=== PATIENT | female | born 1940 | race Caucasian/White ===

== ENCOUNTER 2020-10-02 08:08 | Observation (INO) | payer MEDICARE, SELFPAY ==
[2020-10-02] VITALS (12 sets, daily range): BP systolic 152–211; BP diastolic 54–91; PULSE 56–88; RESP 12–18; TEMP 36.2–36.6; O2SAT 94–99; BMI 29.8
--- NOTE | ~2020-10-02 | MR_ITS ---
EXAMINATION: MR brain/brain stem wo/w con EXAM DATE: 10/03/2020 10:28 INDICATION: hx stroke, new gait disturbance. TECHNIQUE: Magnetic resonance imaging (MRI) of the brain/brain stem obtained without contrast. Sagit brady T1, axial diffusion, gradient echo (T2*), T1, T2, FLAIR sequences obtained. Patient was then inj ected with 14 cc intravenous Multihance contrast. Axial and coronal postcontrast T1 weighted sequence s obtained. Correlation is made to head CT from yesterday. FINDINGS: There are no areas of restricted diffusion to suggest acute infarction. There is no acute hemorrhage seen on the T2*, a hemosiderin sensitive sequence. No intraparenchymal brain mass lesion. There is an old left basal ganglia lacunar infarction. There is mild periventricular and subcortic al T2/FLAIR signal hyperintensity, nonspecific but probably related to small vessel ischemic disease (microangiopathy). There is moderate prominence of the sulci and ventricles related to cerebral atr ophy. There are no extra-axial collections. Flow voids are seen in the cerebral arteries on the T2 -weighted sequences consistent with their expected patency. The orbits are unremarkable. Soft tissu e is unremarkable. There are no areas of abnormal enhancement on the postcontrast images. IMPRESSION: 1. No acute intracranial findings. 2. Chronic age related findings. 3. Old left basal ganglia lacunar infarction. Reviewed, dictated and finalized at location B. CLEANER
--- NOTE | ~2020-10-02 | US_ITS ---
EXAMINATION: US carotid duplex BI DATE: 10/03/2020 10:47 INDICATION: Gait disturbance. TECHNIQUE: Grayscale, color Doppler, and pulsed Doppler images of the cervical carotid arteries were obtained. The degree of vessel stenosis is placed in one of the following categories: normal, <50%, 5 0-69%, >=70% but less than near-occlusion, near-occlusion, or total occlusion. Note that percent sten osis relative to normal distal artery lumen diameter is indirectly measured from velocity measurement s as described by Gurjit, et al. Radiology 2003; 229:340-346. Notes: Normal: Peak systolic velocity <125 centimeters/sec and no plaque <50%. Peak systolic velocity <125 ( EDV <40; ICA/CCA PSV ratio <2.0; used these factors only a tandem lesions or low cardiac output or co ntralateral disease) 50-69 %: PSV 125-230 (EDV 40-100; ratio 2-4) >= 70% but less than near occlusion: PSV greater than 230 (EDV > 100; ratio> 4.0) Near Occlusion: PSV that is variable; markedly narrowed lumen Occlusion: Absent flow on color/spectral Doppler and no lumen on nick scale. COMPARISON: None. FINDINGS: RIGHT: The right common carotid artery (CCA) peak systolic velocity (PSV) is 77 cm/s. The right internal car otid artery (ICA) PSV is 69 cm/s. The right ICA end-diastolic velocity (EDV) is 14 cm/s. The right IC A/CCA PSV ratio is 0.9. The external carotid artery (ECA) PSV is 233 cm/s. There is antegrade flow in the right vertebral artery. LEFT: The left CCA PSV is 73 cm/s. The left ICA PSV is 98 cm/s. The left ICA EDV is 29 cm/s. The left ICA/C CA PSV ratio is 1.3. The ECA PSV is 275 cm/s. There is antegrade flow in the left vertebral artery. IMPRESSION: 1. Less than 50% stenosis in the right internal carotid artery by sonographic criteria. 2. Less than 50% stenosis in the left internal carotid artery by sonographic criteria. Reviewed, dictated and finalized at location A. ICAL SUPPORT NURSE IMPRESSION: 1. Less than 50% stenosis in the right internal carotid artery by sonographic romeo thomas. 2. Less than 50% stenosis in the left internal carotid artery by sonographic hanane ha.
--- NOTE | ~2020-10-02 | XR_ITS ---
EXAMINATION: XR chest 1V portable EXAM DATE: 10/02/2020 09:32 INDICATION: Dizziness and elevated blood pressure. TECHNIQUE: Portable AP frontal chest x-ray was obtained. There is no prior study for comparison. FINDINGS: Small amount of ill-defined right upper lobe airspace disease laterally. Could be developin g acute infectious process, please clinically correlate and consider a follow-up exam. This finding h as been indicated, marked on the examination for review, clinical correlation. The lungs are otherwise clear. There are no pleural effusions. The cardiomediastinal silhouette is within normal limits. There is no pneumothorax suspected. There is aortic arteriosclerosis. There a re mild bony degenerative changes. IMPRESSION: Subsegmental ill-defined right upper lobe airspace disease possible acute developing infe ction. Clinical correlation, recommend follow-up. Reviewed, dictated and finalized at location A. COMMUNICATION INSTRUCTOR IMPRESSION: Subsegmental ill-defined right upper lobe airspace disease possible acute developing infection. Clinical correlation, recommend follow-up.
--- NOTE | ~2020-10-02 | CT_ITS ---
EXAMINATION: CT brain wo con EXAM DATE: 10/02/2020 10:02 INDICATION: Dizziness. Vision problems. TECHNIQUE: Spiral CT of the head was performed without contrast. Axial, coronal and sagittal images were reviewed. The dose-length product (DLP) for this examination was 605.33 mGy-cm. The exposure w as tailored according to patient size, and iterative reconstruction (ASIR) was used as additional dos e reduction technique. There is no prior study for comparison. FINDINGS: There is no acute intraparenchymal hemorrhage. No evidence of intraparenchymal brain mass lesion. No evidence of acute infarction. Please note that initial head CT has limited sensitivity f or small or acute infarctions. There is a left basal ganglia old lacunar infarction. There is mild periventricular and subcortical hypodensity, nonspecific but probably related to small vessel ischemi c disease. There is moderate prominence of the sulci and ventricles related to cerebral atrophy. There is intracranial carotid arteriosclerosis. There are no extra-axial collections. There is no m ass effect or midline shift. Patient has had bilateral ocular lens surgery. Soft tissue is unremark able. The visualized sinuses and mastoid air cells are well aerated. IMPRESSION: 1. No acute intracranial findings. 2. Chronic age related findings. 3. Old left basal ganglia lacunar infarction. Reviewed, dictated and finalized at location A. THER
--- NOTE | 2020-10-02 08:28 | ECG_ITS ---
Measurements Intervals [place] Rate: 70 P: 69 CT: 173 QRS: 53 QRSD: 100 T: 37 QT: 394 QTc: 426 Interpretive Statements SINUS RHYTHM WITH MARKED SINUS ARRHYTHMIA BASELINE ARTIFACT- V4, V6 BORDERLINE ECG Electronically Signed On 10-02-2020 8:36:20 ONLINE MARKETING COORDINATOR by Tien Zapata D.O.
[2020-10-02 08:37] LABS: Glucose Point of Care 122 (65-105)
[2020-10-02 08:41] LABS: Basophils Absolute Auto 0.1 K/mm3 (0.0-0.1); Basophils Percent Auto 0.6 % (0.2-1.2); Eosinophils Absolute Auto 0.1 K/mm3 (0-0.3); Eosinophils Percent Auto 1.3 % (0-4.4); Hematocrit 47.3 % (37.0-47.0); Hemoglobin 15.7 g/dL (12.0-15.0); Immature Granulocyte Absolute 0.02 K/mm3 (0.00-0.031); Immature Granulocyte Percent A 0.2 % (0-0.5); Lymphocytes Absolute Auto 4.68 K/mm3 (0.9-3.2); Lymphocytes Percent Auto 56.4 % (18.3-44.2); Mean Corpuscular HGB Conc 33.2 g/dl (32-36); Mean Corpuscular Hemoglobin 30.6 pg (26-34); Mean Corpuscular Volume 92.2 fl (80-100); Mean Platelet Volume 9.6 fl (7.4-10.4); Monocytes Absolute Auto 0.5 K/mm3 (0.1-0.6); Monocytes Percent Auto 5.4 % (2.6-8.5); Neutrophils Percent Auto 36.1 % (45.5-73.1); Platelet Count Result 230 k/mm3 (150-375); Red Blood Count 5.13 M/mm3 (4.2-5.4); Red Cell Distribution Width 12.3 % (11.5-14.5); White Blood Count 8.3 K/mm3 (4.5-10.0)
[2020-10-02 09:02] LABS: Alanine Aminotransferase 24 U/L (4-35); Albumin Level 4.6 g/dL (3.5-5.1); Alkaline Phosphatase 61 U/L (38-126); Anion Gap 9 mmol/L (8-16); Aspartate Amino Transferase 31 U/L (14-36); Bilirubin,Total 0.8 mg/dL (0.2-1.3); Blood Urea Nitrogen 14 mg/dL (7-17); Calcium 10.4 mg/dL (8.4-10.2); Carbon Dioxide 28 mmol/L (22-30); Chloride 102 mmol/L (98-107); Estimated CRCL calculation 35 ml/min; Estimated Glomerular Filt Rate 53; Glucose 130 mg/dL (65-105); Potassium 4.1 mmol/L (3.4-5.0); Sodium 139 mmol/L (137-145)
--- NOTE | 2020-10-02 09:26 | ED.DIZZY ---
HPI - Dizziness General Chief Complaint: Dizziness Stated Complaint: feeling shakey Time Seen by Provider: 10/02/20 09:11 Source: patient and family History of Present Illness HPI Narrative: 79 years old white female woke up this morning shaky, wobbly and feels like going to faint and fall over, unable to walk in a straight line. Patient denies any fever, chills, nausea, vomiting, headache, focal weakness. History of CVA, with weakness of the right lower extremity. Patient on Coumadin. Patient denies any recent medications. Patient is DNR Related Data Allergies Allergy/AdvReac Type Severity Reaction Status Date / Time fluoxetine Allergy Unknown Hives / Verified 10/02/20 08:29 Red Face Sulfa (Sulfonamide Allergy Unknown Hives / Verified 10/02/20 08:29 Antibiotics) Red Face Review of Systems Review of Systems: Narrative: CONSTITUTIONAL: Denies fever, chills, or sweats. EYES: Denies visual changes, redness, or discharge. ENT: Denies rhinorrhea, congestion, sore throat, or otalgia. CARDIOVASCULAR: Denies chest pain, palpitations, or edema. RESPIRATORY: Denies cough or dyspnea. GASTROINTESTINAL: Denies abdominal pain, nausea, vomiting, or diarrhea. GENITOURINARY: Denies dysuria or hematuria. SKIN: Denies rash or itching. MUSCULOSKELETAL: Denies back pain, joint pain, or myalgia. NEUROLOGIC: Denies headache, numbness, or weakness. PSYCHIATRIC: Denies anxiety or depression. Exam Narrative: Exam Narrative: General appearance: Well-developed, well-nourished, at the bedside Skin: Normal color Head: Normocephalic, nontraumatic Eyes: Clear conjunctiva ENT: Oropharynx normal, ears normal, nose normal Neck: Supple, nontender Chest and respiratory: Airway patent, no respiratory distress, no accessory muscle use Heart: Regular rate/rhythm Abdomen: Soft, nontender, no organomegaly, quiet bowel sounds Vascular: Normal peripheral pulses, normal capillary refill. 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, no gross motor deficit, patient was able to get out of bed, standing next to the bed and feeling wobbly, was not able to walk forward because of the wobbly feeling Course Course Emergency Course: Stable Consultations Consultation #1: DR ESPINOZA Date: 10/02/20 Time: 10:59 Consultation #2: DR ZEPEDA Vital Signs Vital signs: Vital Signs Temperature 36.4 C 10/02/20 08:18 Pulse Rate 88 10/02/20 08:18 Respiratory Rate 14 10/02/20 08:18 Blood Pressure 210/82 H 10/02/20 08:18 Pulse Oximetry 99 10/02/20 08:18 Temperature 36.4 C 10/02/20 08:18 Pulse Rate 66 10/02/20 09:27 Respiratory Rate 16 10/02/20 09:27 Blood Pressure 211/91 H 10/02/20 09:27 Pulse Oximetry 97 10/02/20 09:27 MDM - Dizziness MDM Narrative Medical decision making narrative: Patient presents with wobbly and lightheadedness. Labs, orthostatic blood pressure, CT head, UA and chest x-ray ordered. Further plan to follow Differential Diagnosis Differential diagnosis: Likely adverse reaction to drug, orthostatic hypotension, vertebral basilar insufficiency, cerebrovascular accident and transient cerebral ischemia Lab Data Result diagrams: 10/02/20 08:31 10/02/20 08:31 Labs: Lab Results 10/02/20 10/02/20 10/02/20 Range/Units 08:31 08:31 08:31 WBC 8.3 (4.5-10.0) K/mm3 RBC 5.13 (4.2-5.4) M/mm3 Hgb 15.7 H (12.0-15.0) g/dL Hct 47.3 H (37.0-47.0) % MCV 92.2 (80-100) fl MCH 30.6 (26-34) pg MCHC 33.2 (32-36) g/dl RDW 12.3 (11.5-14.5) % Plt Count 230 (150-375) k/mm3 MPV 9.6 (7.4-10.4) fl Immature Gran
--- NOTE | 2020-10-02 09:39 | PC.NURSE ---
called Anita thorne, added on Trop I and PT INR
[2020-10-02 09:55] LABS: INR 1.8; Prothrombin Time 21.9 Seconds (11.1-14.7)
[2020-10-02 09:56] LABS: Add Urine Microscopic? YES; Appearance Urine Cloudy (Clear); Bilirubin Urine Negative (Negative); Blood Urine Negative (Negative); Color Urine Yellow (Yellow); Glucose Urine UA Negative (Negative); Hyaline Casts Urine 30-49 /lpf; Ketones Urine Negative (Negative); Leukocyte Esterase Ur 2+ LEU/UL (Negative); Mucus Urine Few /lpf; Nitrate Urine Negative (Negative); Protein Urine 2+ mg/dL (Negative); Specific Grav Ur 1.019 (1.001-1.035); Squamous Epithelial Cell Urine Many /hpf (Few); Transitional Epi Cells Urine Rare /hpf (None Seen); Urobilinogen Urine Negative mg/dL (<2.0); WBC Urine 21-30 /hpf
[2020-10-02 10:01] LABS: Troponin I < 0.012 ng/mL (0.000-0.034)
--- NOTE | 2020-10-02 13:37 | ADMGEN ---
This patient, Chelsie Stokes, was admitted to 3 [facility] Surg Room 315-01. Patient/family oriented to hospital policies and general routines including ID bracelet, bed and alarms, visiting hours, pain management, procedures, bathroom and other care routines, personal items, smoking policy, room service/diet, and visiting hours. Information on how to activate the Rapid Response Team has been discussed. Patient/Family are encouraged to report perceived risks to care and to ask questions if they do not understand what they are told or what they should do.
--- NOTE | 2020-10-02 14:43 | PM.IMHP ---
H&P: HPI History of Present Illness Date/Time: 10/02/20 14:43 Chief complaint: Dizzineaa/possible pneumonia/UTI Narrative: Chelsie Stokes is a 79 year old female with a history of stroke in 1992. She was in her usual state of health with only mild stiffness of the right leg as a residual liver stroke. However when she got out of bed at 7:20 a.m. this morning she noticed she was more off balance than usual. Because of her history of prior stroke her brought her the emergency department. She was fine while lying down. She did not attempt to get up until this afternoon when re-evaluated. At that point she had none of the symptoms that were present this morning. She denied headache, blurred vision, double vision, dysphagia, dysarthria, aphasia, weakness, numbness, incoordination, bowel or bladder changes, dysuria, hematuria, frequency, constipation, diarrhea, hematochezia, chest pain, palpitations, syncope or presyncope, fevers chills or sweats, cough, congestion, or sore throat. She has had increased sneezing over the past couple of weeks but has a history of seasonal allergies in the fall. She has not traveled recently nor has she had any known exposure to ill individuals. However 2 weeks ago she did attend an oxygen at which several people did not wear mask. She avoided very crowded areas and did wear a mask herself. With her stroke in 1992 she had some weakness on the right arm and leg and a severe headache. She was evaluated at [facility]. Because no discernible etiology was present they recommended long-term warfarin. She has tolerated that well with no abnormal bleeding or bruising over the years. Her INR levels have been relatively stable. She has never smoked or abused recreational drugs. About 3 years ago she started having 1 shot of whiskey at night. Review of Systems Review of Systems: All systems reviewed & are unremarkable except as noted in HPI and below PMFSH Past Medical History Medical History (Updated 10/02/20 @ 15:02 by Larry Carter MD) H/O: stroke Hypertension, essential Surgical History Surgical History (Updated 10/02/20 @ 14:50 by Larry Carter MD) H/O cataract removal with insertion of prosthetic lens Family History Family History Father Acute myocardial infarction Social History Social History Smoking status: Never smoker Second hand tobacco smoke exposure: No Alcohol intake: current Substance use: never Gender identity (if verbalized by the patient): Female Sexual Orientation (if Verbalized by the Patient): Straight or Heterosexual Spiritual care concerns: No Meds Home Medications and Allergies Home Medications Medication Instructions Recorded Confirmed Type atenolol 50 mg PO DAILY 10/02/20 10/02/20 History lisinopril 40 mg PO DAILY 10/02/20 10/02/20 History simvastatin 40 mg PO DAILY 10/02/20 10/02/20 History warfarin 1 mg PO DAILY 10/02/20 10/02/20 History warfarin 3 mg PO DAILY 10/02/20 10/02/20 History Allergies Allergy/AdvReac Type Severity Reaction Status Date / Time fluoxetine Allergy Unknown Hives / Verified 10/02/20 13:42 Red Face Sulfa (Sulfonamide Allergy Unknown Hives / Verified 10/02/20 13:42 Antibiotics) Red Face Vital Signs Vital Signs - 24 hr 10/02/20 08:18 10/02/20 08:29 10/02/20 09:20 Temperature 97.6 F Pulse Rate 88 73 75 Respiratory Rate 14 13 Blood Pressure 210/82 H 196/81 H 175/80 H Pulse Oximetry 99 98 10/02/20 09:27 10/02/20 11:08 10/02/20 11:12 Temperature Pulse Rate 67 63 62 Respiratory Rate 16 13 13 Blood Pressure 211/91 H 184/75 H 184/75 H Pulse Oximetry 97 97 96 10/02/20 11:50 10/02/20 12:43 10/02/20 14:09 Temperature Pulse Rate 62 58 L Respiratory Rate 12 13 Blood Pressure 177/61 H 172/71 H Pulse Oximetry 97 96 94 Exam Narra
[2020-10-02] MEDS: SIMVASTATIN 20 MG TABLET 40 MG PO (20:30)
[2020-10-02 22:24] LABS: SARS-CoV-2 RNA PCR Negative
[2020-10-02] MEDS: WARFARIN (*PBKC) 1 MG TABLET PO (23:04)
[2020-10-03] VITALS (8 sets, daily range): BP systolic 127–179; BP diastolic 55–62; PULSE 56–67; RESP 18–20; TEMP 36.2–36.4; O2SAT 97–98
--- NOTE | 2020-10-03 | ECHO_ITS ---
Patient Info Name: Chelsie Small Chartrand Age: 79 years : 1940 Gender: Female Ht: 61 in Wt: 158 lbs BSA: 1.78 m2 HR: 79 bpm BP: 168 / 61 mmHg Heart Rhythm: Sinus Rhythm Technical Quality: Good Exam Date: 10/03/2020 2:18 PM Exam Location: [facility] Patient Status: Outpatient Admit Date: 10/02/2020 Staff Ordering Physician: Larry Carter MD Technical Sales Manager: Gene Walker, LENA, RT Attending Provider: Carlyle Umana MD Referring Physician: Emma SMITH; Exam Type: CA echo dop color flow w con Study Info Indications G45.8 - Other transient cerebral ischemic attacks and related syndromes Complete two-dimensional, color flow and Doppler transthoracic echocardiogram is performed. Strain analysis performed. Summary 1. Complete two-dimensional, color flow and Doppler transthoracic echocardiogram is performed. 2. Strain analysis performed. 3. Left ventricular chamber dimension is normal. 4. Left ventricular systolic function is normal, estimated at 60-65%. 5. There is mildly increased left ventricular wall thickness. 6. The left ventricular diastolic function is grade I diastolic dysfunction. 7. Global longitudinal strain is normal at -21 %. 8. Left atrial chamber dimension is mildly enlarged. 9. There is mild aortic valve calcification. 10. The mitral valve has thickened leaflets, calcified leaflets and calcified annulus. 11. There is mild mitral valve regurgitation. 12. There is mild mitral valve calcification. 13. There is mild tricuspid valve regurgitation. 14. On the anterior mitral leaflet, there is a significant calcification which may be an old healed vegetation. Left Ventricle Left ventricular chamber dimension is normal. Left ventricular systolic function is normal, estimated at 60-65%. There is mildly increased left ventricular wall thickness. The left ventricular diastolic function is grade I diastolic dysfunction. Global longitudinal strain is normal at -21 %. Right Ventricle Right ventricular chamber dimension is normal. Right ventricular systolic function is normal. Left Atria Left atrial chamber dimension is mildly enlarged. Right Atria Right atrial chamber dimension is normal. Atrial Septum Intact interatrial septum visualized by color flow imaging. Aortic Valve The aortic valve is trileaflet. There is mild aortic valve sclerosis. There is no aortic valve stenosis. There is trace aortic valve regurgitation. There is mild aortic valve calcification. Pulmonic Valve The pulmonic valve is normal. There is no pulmonic valve stenosis. There is trace pulmonic regurgitation. Mitral Valve The mitral valve has thickened leaflets, calcified leaflets and calcified annulus. There is no mitral valve stenosis. There is mild mitral valve regurgitation. There is mild mitral valve calcification. On the anterior mitral leaflet, there is a significant calcification which may be an old healed vegetation. Tricuspid Valve The tricuspid valve leaflets are normal. There is no significant tricuspid valve stenosis. There is mild tricuspid valve regurgitation. No pulmonary hypertension, estimated pulmonary arterial systolic pressure is 31 mmHg. Pericardium/Pleural The pericardium appears normal. There is no pericardial effusion. Inferior Vena Cava Normal inferior vena cava with <50% collapse upon inspiration consistent with normal right atrial pressure, 5 mmHg. Aorta The aortic root size at the si
[2020-10-03 06:15] LABS: Basophils Percent Auto 0.5 % (0.2-1.2); Eosinophils Absolute Auto 0.1 K/mm3 (0-0.3); Eosinophils Percent Auto 1.3 % (0-4.4); Hematocrit 43.1 % (37.0-47.0); Hemoglobin 14.5 g/dL (12.0-15.0); Immature Granulocyte Absolute 0.02 K/mm3 (0.00-0.031); Immature Granulocyte Percent A 0.2 % (0-0.5); Lymphocytes Percent Auto 36.7 % (18.3-44.2); Mean Corpuscular HGB Conc 33.6 g/dl (32-36); Mean Corpuscular Volume 89.2 fl (80-100); Mean Platelet Volume 9.8 fl (7.4-10.4); Monocytes Absolute Auto 0.6 K/mm3 (0.1-0.6); Monocytes Percent Auto 7.6 % (2.6-8.5); Neutrophils Absolute Auto 4.4 K/mm3 (1.3-6.7); Neutrophils Percent Auto 53.7 % (45.5-73.1); Platelet Count Result 208 k/mm3 (150-375); Red Blood Count 4.83 M/mm3 (4.2-5.4); Red Cell Distribution Width 12.1 % (11.5-14.5); White Blood Count 8.2 K/mm3 (4.5-10.0)
[2020-10-03 06:28] LABS: Anion Gap 8 mmol/L (8-16); Blood Urea Nitrogen 13 mg/dL (7-17); Calcium 9.8 mg/dL (8.4-10.2); Carbon Dioxide 26 mmol/L (22-30); Chloride 105 mmol/L (98-107); Estimated CRCL calculation 43 ml/min; Estimated Glomerular Filt Rate > 60; Glucose 114 mg/dL (65-105); Potassium 4.1 mmol/L (3.4-5.0); Sodium 139 mmol/L (137-145)
[2020-10-03 06:32] LABS: INR 1.9; Prothrombin Time 22.1 Seconds (11.1-14.7)
[2020-10-03] MEDS: lisinopriL 20 MG TABLET 40 MG PO (08:00)
[2020-10-03] MEDS: atenoloL 50 MG TABLET PO (08:05)
--- NOTE | 2020-10-03 10:43 | WPDNEURCNPN ---
Assessment and Plan Assessment and plan (1) Gait disturbance: Code(s): R26.9 - Unspecified abnormalities of gait and mobility Status: Acute Additional Plan a CT scan revealed no acute intracranial bleed chronic age-related finding and old left basal gangliar lacunar infarct carotid study an MRI pending routine labs with no leukocytosis hemoglobin 15.7 UA abnormal and the culture is pending medication will continued as such Consult date: 10/04/20 Time Seen: 10:43 HPI: Chlesie Stokes is a 79 year old female has been admitted to [facility] with ongoing history of having any stroke back in 1992 but recently more difficulties in maintaining the balance she was reportedly find lying down on the floor he did not get up until the afternoon she gave no history of associated generalized symptomatology but she did have a history of increases in sneezing she has had a stroke back in 1992 which left her with right-sided weakness he was initially evaluated at the [facility] and was placed on long-term anticoagulation therapy past history of consistent with the 1. Hypertension 2. Stroke 3. Cataract extraction 4. No small and not drinking Review of Systems Review of Systems: All systems reviewed & are unremarkable except as noted in HPI and below PMFSH Past Medical History Medical History (Updated 10/02/20 @ 15:02 by Larry Carter MD) H/O: stroke Hypertension, essential Surgical History Surgical History (Updated 10/02/20 @ 14:50 by Larry Carter MD) H/O cataract removal with insertion of prosthetic lens Family History Family History Father Acute myocardial infarction Social History Social History Smoking status: Never smoker Second hand tobacco smoke exposure: No Alcohol intake: current Substance use: never Gender identity (if verbalized by the patient): Female Sexual Orientation (if Verbalized by the Patient): Straight or Heterosexual Spiritual care concerns: No Meds Home Medications and Allergies Home Medications Medication Instructions Recorded Confirmed Type atenolol 50 mg PO DAILY 10/02/20 10/02/20 History lisinopril 40 mg PO DAILY 10/02/20 10/02/20 History simvastatin 40 mg PO DAILY 10/02/20 10/02/20 History warfarin 1 mg PO DAILY 10/02/20 10/02/20 History warfarin 3 mg PO DAILY 10/02/20 10/02/20 History Allergies Allergy/AdvReac Type Severity Reaction Status Date / Time fluoxetine Allergy Unknown Hives / Verified 10/02/20 13:42 Red Face Sulfa (Sulfonamide Allergy Unknown Hives / Verified 10/02/20 13:42 Antibiotics) Red Face Vital Signs Vital Signs - 24 hr 10/02/20 11:08 10/02/20 11:12 10/02/20 11:50 Temperature Pulse Rate 63 62 62 Respiratory Rate 13 13 12 Blood Pressure 184/75 H 184/75 H 177/61 H Pulse Oximetry 97 96 97 10/02/20 12:43 10/02/20 14:09 10/02/20 16:00 Temperature 36.6 C Pulse Rate 58 L 56 L Respiratory Rate 13 16 Blood Pressure 172/71 H 152/54 H Pulse Oximetry 96 94 98 10/02/20 20:00 10/02/20 20:25 10/03/20 00:00 Temperature 36.2 C L Pulse Rate 59 L 56 L 57 L Respiratory Rate 18 Blood Pressure 168/68 H Pulse Oximetry 95 10/03/20 04:00 10/03/20 06:00 Temperature 36.3 C L Pulse Rate 56 L 62 Respiratory Rate 18 Blood Pressure 168/61 H Pulse Oximetry 97 Exam Narrative: Exam Narrative: examination reveals her to be awake alert ear nose throat examination normal neck supple with no cervical bruit no thyromegaly no lymphadenopathy heart regular lungs clear abdomen is soft neurological is she has pupils round regular feels the vision full extraocular muscle full face symmetrical tongue midline motor examination revealed her to have stiffness in the right lower extremity with upgoing questionable plantar response Results Labs CBC & Chem 7: 10/04/20 06:47
--- NOTE | 2020-10-03 12:22 | PM.IMPN ---
Progress Note: A&P Assessment and Plan (1) Gait disturbance: Code(s): R26.9 - Unspecified abnormalities of gait and mobility Status: Acute Assessment and Plan: Currently without residual symptoms. This could been a transient ischemic attack related to cerebrovascular disease, although, more likely this is metabolic and related to urinary tract infection. Imaging thus far is unremarkable. Telemetry is unremarkable. Dr. Cabezas following and appreciate recommendations will treat UTI with Rocephin for now obtain echocardiogram monitor on telemetry PT and OT following continue warfarin and follow-up INR (2) Urinary tract infection: Qualifiers: Hematuria presence: without hematuria Urinary tract infection type: site unspecified Qualified Code(s): N39.0 - Urinary tract infection, site not specified Code(s): N39.0 - Urinary tract infection, site not specified Status: Acute Assessment and Plan: UA suspicious for UTI. UCx pending empiric ceftriaxone for now; tailor antibiotics to culture Monitor (3) Hypertension, essential: Code(s): I10 - Essential (primary) hypertension Status: Acute Assessment and Plan: BP elevated during stay; she has a history of white coat hypertension. BP 160s sys this morning monitor on home regimen of atenolol and lisinopril Consider increasing meds if no improvement (4) Erythrocytosis: Code(s): D75.1 - Secondary polycythemia Status: Acute Assessment and Plan: Possibly due to inadequate fluid intake. Improvement overnight. Hypoxia, sleep apnea unlikely as secondary causes. She does not have splenomegaly or thrombocytosis to suggest polycythemia rubra vera Monitor tomorrow (5) Abnormal chest x-ray: Code(s): R93.89 - Abnormal findings on diagnostic imaging of other specified body structures Status: Acute Assessment and Plan: She has no significant respiratory symptoms other than her sneezing with seasonal rhinitis. COVID testing negative. Possible atelectasis? Monitor respiratory status Subjective Date/time seen: 10/03/20 12:22 Interval history: Patient is a 79 year old female with a history of stroke in 1992 and HTN who is here for evaluation for gait disturbance and acute UTI. Patient states she feels better today. She has slight dizziness occasionally, but overall, symptoms have improved if not resolved. No other complaints at the moment. Denies f/c/s, headaches, current dizziness, lightheadedness, acute changes in v/h, cp/palpitations, sob/cough, current n/v/d/c, abd pain, changes in BMs, dysuria, hematuria, cloudy urine, calf pain/swelling. Review of Systems Review of Systems: All systems reviewed & are unremarkable except as noted in HPI and below Exam Narrative: Exam Narrative: General: Patient sitting upright in bed eating lunch at time of visit in no acute distress. HEENT: Normocephalic, EOMI, oral mucosa moist. Cardiovascular: Rate and rhythm are regular. No notable murmur, rub, or gallop. Tele shows sinus rhythm with occasional PVCs Respiratory: Lungs clear to auscultation all doty. Non-labored breathing. Abdomen: Soft, non-tender, non-distended, bowel sounds present. Extremities: Peripheral pulses intact. No edema. Neuro: CNII-XII intact. No focal neurological deficits. Speech is clear. Coordination intact. EOMI Objective Data Vital Signs Vital Signs: Last Vital Signs Temp 97.4 F L 10/03/20 06:00 Pulse 67 10/03/20 08:00 Resp 18 10/03/20 08:00 BP 168/61 H 10/03/20 06:00 Pulse Ox 97 10/03/20 08:00 Intake/Output Intake/Output: Intake & Output 09/30/20 10/01/20 10/02/20 10/03/20 23:59 23:59 23:59 23:59 Intake Total 440 450 Balance 440 450 Meds/Re
[2020-10-03] MEDS: WARFARIN (*PBKC) 3 MG TABLET PO (17:25)
[2020-10-03] MEDS: SIMVASTATIN 20 MG TABLET 40 MG PO (17:25)
[2020-10-04] VITALS: PULSE 61
[2020-10-04 04:00] VITALS: PULSE 60
[2020-10-04 06:00] VITALS: BP 163/62; PULSE 61; RESP 20; TEMP 36.4; O2SAT 96
[2020-10-04 06:57] LABS: Hematocrit 43.9 % (37.0-47.0); Hemoglobin 14.8 g/dL (12.0-15.0); Mean Corpuscular HGB Conc 33.7 g/dl (32-36); Mean Corpuscular Hemoglobin 30.5 pg (26-34); Mean Corpuscular Volume 90.5 fl (80-100); Mean Platelet Volume 9.5 fl (7.4-10.4); Platelet Count Result 195 k/mm3 (150-375); Red Blood Count 4.85 M/mm3 (4.2-5.4); Red Cell Distribution Width 12.4 % (11.5-14.5); White Blood Count 8.1 K/mm3 (4.5-10.0)
[2020-10-04 07:12] LABS: Anion Gap 9 mmol/L (8-16); Blood Urea Nitrogen 14 mg/dL (7-17); Calcium 9.6 mg/dL (8.4-10.2); Carbon Dioxide 26 mmol/L (22-30); Chloride 103 mmol/L (98-107); Estimated CRCL calculation 43 ml/min; Estimated Glomerular Filt Rate > 60; Glucose 100 mg/dL (65-105); Magnesium 2.2 mg/dL (1.6-2.3); Potassium 4.3 mmol/L (3.4-5.0); Sodium 138 mmol/L (137-145)
[2020-10-04 07:15] LABS: INR 1.7; Prothrombin Time 20.4 Seconds (11.1-14.7)
[2020-10-04 08:51] VITALS: PULSE 61
[2020-10-04] MEDS: atenoloL 50 MG TABLET PO (08:51)
[2020-10-04] MEDS: lisinopriL 20 MG TABLET 40 MG PO (08:51)
--- NOTE | 2020-10-04 08:56 | PCPTNOTE ---
Attempted therapy session, Pt eating breakfast. Will try again.
[2020-10-04] MEDS: ACETAMINOPHEN 325 MG TABLET 650 MG PO (10:35)
--- NOTE | 2020-10-04 11:29 | PM.DS ---
DS: Admitting Diagnosis Admitting Diagnosis Admitting Diagnosis: Dizziness/UTI DS: Discharge Diagnosis Discharge Diagnosis (1) Gait disturbance: Code(s): R26.9 - Unspecified abnormalities of gait and mobility Status: Acute Assessment and Plan: Currently without residual symptoms. This could been a transient ischemic attack related to cerebrovascular disease, although, more likely this is metabolic and related to urinary tract infection. Pt had stroke up in the hospital, ECHO, CT HEAD AND MRI HEAD. AND SAW neurology in the hospital. Looks like pt may have had TIA. Advised to continue Coumadin for now, but she needs to discuss with her PCP about coumadin, as she has been on it for 28 years. (2) Urinary tract infection: Qualifiers: Hematuria presence: without hematuria Urinary tract infection type: site unspecified Qualified Code(s): N39.0 - Urinary tract infection, site not specified Code(s): N39.0 - Urinary tract infection, site not specified Status: Acute Assessment and Plan: UA suspicious for UTI. Pt treated with iv rocephin in hospital Empiric ceftriaxone for now. UC is negative. Pt is ok for discharge. (3) Hypertension, essential: Code(s): I10 - Essential (primary) hypertension Status: Acute Assessment and Plan: BP elevated during stay; she has a history of white coat hypertension. Even happens when she is in the PCP office. (4) Erythrocytosis: Code(s): D75.1 - Secondary polycythemia Status: Acute Assessment and Plan: Possibly due to inadequate fluid intake. Advised to drink plenty of water. (5) Abnormal chest x-ray: Code(s): R93.89 - Abnormal findings on diagnostic imaging of other specified body structures Status: Acute Assessment and Plan: She has no significant respiratory symptoms other than her sneezing with seasonal rhinitis. COVID testing negative. Pt has no cough, fever or respiratory complaints on day of discharge. DS: Summary Time Spent with Patient Time attestation: Total time spent providing and/or coordinating discharge services: Exam Narrative: Exam Narrative: General: Patient sitting up no distress HEENT: Normocephalic, Cardiovascular: Rate and rhythm are regular. Respiratory: Lungs clear to auscultation all doty. Non-labored breathing. Abdomen: Soft, non-tender, non-distended, bowel sounds present. Extremities: Peripheral pulses intact. No edema. Neuro: Cranial nerves intact. No focal neurological deficits. Speech is clear. DS: Data Data Completed and Pending Labs on day of discharge: Labs from last 24 hours 10/04/20 10/04/20 10/04/20 06:47 06:47 06:47 WBC 8.1 RBC 4.85 Hgb 14.8 Hct 43.9 MCV 90.5 MCH 30.5 MCHC 33.7 RDW 12.4 Plt Count 195 MPV 9.5 PT 20.4 H INR 1.7 Sodium 138 Potassium 4.3 Chloride 103 Carbon Dioxide 26 Anion Gap 9 BUN 14 Creatinine 0.80 Estim Creat Clear Calc 43 Estimated GFR > 60 Glucose 100 Calcium 9.6 Magnesium 2.2 Discharge Plan Discharge Attending physician on discharge: Anahi Armando Consulting providers: Carlos Mccray Discharging Clinician: Anahi Armando Anticipated Discharge Date/Time: 10/04/20 11:27 Patient Disposition: Home, Self-Care Activity: as tolerated Diet: heart healthy Discharge Instructions: Continue on inr checks for Coumadin Pt has been on coumadin for 28 years now. Patient Instructions: Antibiotic Form, Warfarin (By mouth), Urinary Tract Infection in Women (GEN), Dizziness (GEN) Stand Alone Forms: General Discharge Information Follow-up/Referrals: Sukhdev Padgett MD [Primary Care Provider] - Discharge Medications: Continued simvastatin 40 mg tablet 40 mg PO DAILY RF: 0 wa
== END 2020-10-04 12:42 | disposition home or self-care (01) ==
LOC: ANHED 10:59 → ANH3MEDSUR 10-03 12:33
PROVIDERS: Internal Medicine; Physician Assistant; Admitting Provider Family Medicine; Emergency Provider Emergency Medicine; PCP Family Medicine; Visit Provider Family Medicine
DX: N39.0 Urinary tract infection, site not specified (principal); D75.1 Secondary polycythemia; R26.9 Unspecified abnormalities of gait and mobility; R93.89 Abnormal findings on diagnostic imaging of other specified body structures; I65.23 Occlusion and stenosis of bilateral carotid arteries; I10 Essential (primary) hypertension; E78.5 Hyperlipidemia, unspecified; I69.351 Hemiplegia and hemiparesis following cerebral infarction affecting right dominant side; Z87.440 Personal history of urinary (tract) infections; Z79.01 Long term (current) use of anticoagulants; Z20.828 Contact with and (suspected) exposure to other viral communicable diseases
CPT/HCPCS: 36415; 70450; 70553; 71045; 80048; 80053; 81001; 82948; 83735; 84443; 84484; 85025; 85027; 85610; 87086; 87088; 87635; 93005; 93880; 96365; 96376; 97116; 97161; 97165; 97530; 99285; A9270; A9577; C8929; C9803; G0378; J0696; U0003

== ENCOUNTER 2024-08-27 19:19 | Emergency (ER) | payer MEDICARE, SELFPAY ==
[2024-08-27] VITALS (14 sets, daily range): BP systolic 137–214; BP diastolic 49–66; PULSE 56–93; RESP 14–21; TEMP 36.3–36.9; O2SAT 94–98
--- NOTE | 2024-08-27 22:58 | ED.GENADULT ---
HPI - General Adult General Chief complaint: Unspecified Stated complaint: anxiety, high blood pressure Time Seen by Provider: 08/27/24 21:01 History of Present Illness HPI narrative: patient is an 83-year-old female who presents ER with jitteriness. She was suddenly jittery at home. No chest pain or chest pressure. She did try take her blood pressure and cannot be read so she came to the ER. They did discover tonight that their son's [id number] . Also they have a daughter getting chemotherapy but they do not feel like this is increased stress did not feel particularly anxious prior to this episode. Asymptomatic at this time. Denies fevers or chills or sweats. No cough. She did say her legs were shaky. Patient is on Coumadin. Related Data Home Medications Medication Instructions Recorded Confirmed omega [id number]-[id number] oil 300 1 cap PO BID 02/12/23 08/14/24 mg-1,000 mg capsule (Fish Oil) Allergies Allergy/AdvReac Type Severity Reaction Status Date / Time fluoxetine Allergy Unknown Hives / Verified 08/27/24 19:31 Red Face Sulfa (Sulfonamide Allergy Unknown Hives / Verified 08/27/24 19:31 Antibiotics) Red Face Review of Systems Review of Systems: All systems reviewed & are unremarkable except as noted in HPI and below Constitutional: Constitutional: Reports no additional constitutional complaints ENT: Reports system reviewed and no additional complaints, except as documented Cardiovascular: Cardiovascular: Reports no additional cardiovascular complaints Respiratory: Respiratory: Reports no additional respiratory complaints Psychiatric: Psychiatric: Reports anxiety and Denies depression [facility] Past Medical History Medical History (Updated 08/27/24 @ 23:04 by Watson Stinson MD) Atherosclerosis of aorta Dysarthria following cerebral infarction Hyperlipidemia, unspecified Hypertensive chronic kidney disease with stage 1 through stage 4 chronic kidney disease, or unspecified 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 Occlusion and stenosis of bilateral carotid arteries Stage 2 chronic kidney disease Stage 3a chronic kidney disease Surgical History Surgical History H/O cataract removal with insertion of prosthetic lens Family History Family History Father Acute myocardial infarction Social History Social History Smoking status: Never smoker Second hand tobacco smoke exposure: No Alcohol intake: current Drinks per week: 5 Substance use: never Substance use type: does not use Do You Feel Safe in your Home?: Yes Lack of Transportation: No Lack of Food: Never True Current Housing: I Have Housing Concerned About Future Housing: No Difficulty Paying Gas/Electric Bills: No Difficulty Paying for Meds: No Currently Unemployed: No Education: High School Diploma/GED Difficulty w/ Childcare or Family Care: No Living arrangements: with family Occupation/Education: retired Gender identity (if verbalized by the patient): Female Sexual Orientation (if Verbalized by the Patient): Straight or Heterosexual Spiritual care concerns: No Exam Narrative: GENERAL: Well-appearing, well-nourished, and in no acute distress. HEAD: Normocephalic, atraumatic. ENT: Mucous membranes moist. NECK: Supple. CHEST: Clear to auscultation. No respiratory distress. HEART: Regular rate and rhythm. Normal peripheral pulses. ABDOMEN: Soft, nontender, nondistended. EXTREMITIES: Normal range of motion. No edema. SKIN: Warm, dry, no rash. NEURO: Alert and oriented x3. PSYCH: Normal mood and affect. Course Course Emergency Course: Blood pressure in safe / normal range. Appropriate for discharge home. Normal labs. Patient feels comfortable with plan. Vital Signs Vital signs:
[2024-08-27 23:30] LABS: Basophils Absolute Auto 0.1 K/mm3 (0.0-0.1); Basophils Percent Auto 0.5 % (0.2-1.2); Eosinophils Absolute Auto 0.1 K/mm3 (0-0.3); Eosinophils Percent Auto 0.7 % (0-4.4); Hematocrit 40.5 % (37.0-47.0); Hemoglobin 13.7 g/dL (12.0-15.0); Immature Granulocyte Absolute 0.02 K/mm3 (0.00-0.031); Immature Granulocyte Percent A 0.2 % (0-0.5); Lymphocytes Absolute Auto 3.06 K/mm3 (0.9-3.2); Lymphocytes Percent Auto 29.3 % (18.3-44.2); Mean Corpuscular HGB Conc 33.8 g/dl (32-36); Mean Corpuscular Hemoglobin 30.6 pg (26-34); Mean Corpuscular Volume 90.4 fl (80-100); Mean Platelet Volume 10.1 fl (7.4-10.4); Monocytes Absolute Auto 0.6 K/mm3 (0.1-0.6); Neutrophils Absolute Auto 6.6 K/mm3 (1.3-6.7); Neutrophils Percent Auto 63.3 % (45.5-73.1); Platelet Count Result 172 k/mm3 (150-375); Red Blood Count 4.48 M/mm3 (4.2-5.4); Red Cell Distribution Width 12.2 % (11.5-14.5); White Blood Count 10.5 K/mm3 (4.5-10.0)
[2024-08-27 23:39] LABS: Alanine Aminotransferase 23 U/L (6-35); Albumin Level 4.3 g/dL (3.5-5.1); Alkaline Phosphatase 59 U/L (38-126); Anion Gap 5 mmol/L (4-12); Aspartate Amino Transferase 31 U/L (14-36); Bilirubin,Total 0.8 mg/dL (0.2-1.3); Blood Urea Nitrogen 16 mg/dL (7-17); Calcium 10.3 mg/dL (8.4-10.2); Carbon Dioxide 27 mmol/L (22-30); Chloride 106 mmol/L (98-107); Estimated CRCL calculation 36 ml/min; Estimated Glomerular Filt Rate 60; Glucose 118 mg/dL (65-110); Magnesium 2.2 mg/dL (1.6-2.3); Potassium 4.2 mmol/L (3.4-5.0); Sodium 138 mmol/L (137-145)
[2024-08-27 23:40] LABS: INR 2.5; Prothrombin Time 27.3 Seconds (11.1-14.7)
[2024-08-27 23:46] LABS: Partial Thromboplastin Time 36.1 Seconds (22.3-36.8)
[2024-08-28 00:27] VITALS: BP 137/59; PULSE 62; RESP 16; TEMP 36.7; O2SAT 98
== END 2024-08-28 00:31 | disposition home or self-care (01) ==
PROVIDERS: Emergency Provider Emergency Medicine; PCP Family Medicine
DX: F41.9 Anxiety disorder, unspecified (principal); I12.9 Hypertensive chronic kidney disease with stage 1 through stage 4 chronic kidney disease, or unspecified chronic kidney disease; N18.31 Chronic kidney disease, stage 3a; I65.23 Occlusion and stenosis of bilateral carotid arteries; I70.0 Atherosclerosis of aorta; E78.5 Hyperlipidemia, unspecified; Z96.1 Presence of intraocular lens; Z98.49 Cataract extraction status, unspecified eye; Z79.01 Long term (current) use of anticoagulants; Z79.899 Other long term (current) drug therapy
CPT/HCPCS: 36415; 80053; 83735; 85025; 85610; 85730; 99283